=== PATIENT | female | born 1970 | race Caucasian/White ===

== ENCOUNTER 2019-08-20 10:09 | Outpatient (CLI) | payer BC ==
--- NOTE | 2019-08-20 11:03 | MMO ---
Right Breast MAMMO Unilat Diag DDI RT+PRIYANK. CLINICAL HISTORY: Patient is 49 years old and is seen for follow-up at short-interval from prior study. The patient has no family history of breast cancer. The patient has no personal history of cancer. The patient has a history of bilateral Implants in 2013. VIEWS: The views performed were: right craniocaudal; right craniocaudal with tomosynthesis; right mediolateral oblique; right mediolateral oblique with tomosynthesis; right mediolateral; right mediolateral with tomosynthesis; and right Implant displaced with tomosynthesis. FILMS COMPARED: The present examination has been compared to prior imaging studies performed at [facility] on 08/20/2019, and at [facility] on 12/18/2018 and 12/20/2018. This study has been interpreted with the assistance of computer-aided detection. MAMMOGRAM FINDINGS: There are scattered fibroglandular densities. There are multiple similar oval masses with circumscribed margins seen in the right breast at 12 o'clock. These appear smaller than on prior. Sonography confirms. There are no suspicious masses, suspicious calcifications, or new areas of architectural distortion. IMPRESSION: THERE IS NO MAMMOGRAPHIC EVIDENCE OF MALIGNANCY. A ROUTINE FOLLOW-UP MAMMOGRAM IN 6 MONTHS IS RECOMMENDED. THE RESULTS OF THIS EXAM WERE SENT TO THE PATIENT. ACR BI-RADS Category 2 - Benign finding MAMMOGRAPHY NOTE: 1. A negative mammogram report should not delay a biopsy if a dominant of clinically suspicious mass is present. 2. Approximately 10% to 15% of breast cancers are not detected by mammography. 3. Adenosis and dense breasts may obscure an underlying neoplasm. Reported by: JORDAN ARREOLA MD Electonically Signed: [id number]
--- NOTE | 2019-08-20 11:05 | MMO ---
Right US Breast Limited Rt. CLINICAL HISTORY: Patient is 49 years old and is seen for . The patient has a history of bilateral Implants in 2014. VIEWS: The views performed were: . FILMS COMPARED: The present examination has been compared to prior imaging studies performed at [facility] on 08/20/2019, and at [facility] on 12/18/2018 and 12/20/2018. This study has been interpreted with the assistance of computer-aided detection. RIGHT BREAST ULTRASOUND FINDINGS: There are multiple similar simple cysts seen in the right breast. The finding is seen at 12 o'clock. Findings have decreased in size. On ultrasound, no suspicious findings are identified. IMPRESSION: THERE IS NO MAMMOGRAPHIC EVIDENCE OF MALIGNANCY. A ROUTINE FOLLOW-UP MAMMOGRAM IN 6 MONTHS IS RECOMMENDED. THE RESULTS OF THIS EXAM WERE SENT TO THE PATIENT. ACR BI-RADS Category 2 - Benign finding MAMMOGRAPHY NOTE: 1. A negative mammogram report should not delay a biopsy if a dominant of clinically suspicious mass is present. 2. Approximately 10% to 15% of breast cancers are not detected by mammography. 3. Adenosis and dense breasts may obscure an underlying neoplasm. Reported by: JORDAN ARREOLA MD Electonically Signed: [id number]
== END 2019-08-20 10:10 | disposition home or self-care (01) ==
LOC: BICMAMMO 10:09
PROVIDERS: ATTEND Obstetrics & Gynecology
DX: N63.10 Unspecified lump in the right breast, unspecified quadrant (principal)
CPT/HCPCS: G0279